=== PATIENT | male | born 1980 | race Caucasian/White ===

== ENCOUNTER 2020-09-09 10:02 | Emergency (ER) | payer OTHER ==
[2020-09-09 10:14] VITALS: BP 165/94
--- NOTE | 2020-09-09 12:02 | ER Document Report ---
ED Medical Screen (RME) - General Chief Complaint: Insect Bite Stated Complaint: POSSIBLE SPIDER BITE ON LEFT LEG Time Seen by Provider: 09/09/20 11:44 - HPI Notes: 09/09/20 11:59 40-year-old male presents to the emergency room today for evaluation of left lower extremity has multiple areas of discoloration from what he suspects was a possible spider bite, states that yesterday it was red and today its purple/ black in color, states it slightly itchy. Patient was seen in urgent care and advised to go to the emergency room for further evaluation today. denies being on any blood thinners. States becoming worse with time. Has not tried any tccs-svh-xysnela medications. 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 Denies any chest pain, shortness of breath, nausea, vomiting, diarrhea. Denies any numbness or tingling bilateral lower extremities I have greeted and performed a rapid initial assessment of this patient. A comprehensive ED assessment and evaluation of the patient, analysis of test results and completion of the medical decision making process will be conducted by additional ED providers. PHYSICAL EXAMINATION: GENERAL: Well-appearing, well-nourished and in no acute distress. SKIN: Left lower extremity with approximately 1 cm X1 centimeter annular patch of purpura, indurated, warmth to touch with black discoloration on anterior aspect of martinez, noted smaller scattered petechial rash that is indurated. Still pulses +2 bilaterally equally - Related Data Allergies/Adverse Reactions: NSAIDS (Non-Steroidal Anti-Inflamma Allergy (Verified 09/09/20 11:42) Home Medications: CBD oil Past Medical History - Social History Frequency of alcohol use: None Drug Abuse: None Physical Exam - Vital signs Vitals: Temp Pulse Resp BP Pulse Ox 98.7 F 87 18 165/94 H 97 09/09/20 10:12 09/09/20 10:12 09/09/20 10:12 09/09/20 10:12 09/09/20 10:12 Course - Vital Signs Vital signs: Temp Pulse Resp BP Pulse Ox 98.7 F 87 18 165/94 H 97 09/09/20 10:12 09/09/20 10:12 09/09/20 10:12 09/09/20 10:12 09/09/20 10:12
[2020-09-09 12:18] LABS: ABSOLUTE BASOPHILS # (AUTO) 0.1 10^3/uL (0.0-0.2); ABSOLUTE EOSINOPHILS # (AUTO) 0.4 10^3/uL (0.0-0.6); ABSOLUTE LYMPHOCYTES (AUTO) 3.7 10^3/uL (0.5-4.7); ABSOLUTE MONOCYTES (AUTO) 0.9 10^3/uL (0.1-1.4); ABSOLUTE NEUT (AUTO) 6.5 10^3/uL (1.7-8.2); BASOPHILS % (AUTO) 0.7 % (0-2); EOSINOPHILS % (AUTO) 3.8 % (0-6); HEMATOCRIT 47.8 % (37.9-51.0); HEMOGLOBIN 16.8 g/dL (13.5-17.0); LYMPHOCYTES % (AUTO) 31.5 % (13-45); MEAN CORPUSCULAR HEMOGLOBIN 31.4 pg (27.0-33.4); MEAN CORPUSCULAR VOLUME 90 fl (80-97); MONOCYTES % (AUTO) 7.9 % (3-13); PLATELET COUNT 265 10^3/uL (150-450); RED BLOOD COUNT 5.34 10^6/uL (4.35-5.55); RED CELL DISTRIBUTION WIDTH 13.4 % (11.5-14.0); SEGMENTED NEUTROPHILS % (AUTO) 56.1 % (42-78); TOTAL CELLS COUNTED % (AUTO) 100 %; WHITE BLOOD COUNT 11.7 10^3/uL (4.0-10.5)
[2020-09-09 12:39] LABS: ANION GAP 9 (5-19); BLOOD UREA NITROGEN 15 mg/dL (7-20); CALCIUM 9.9 mg/dL (8.4-10.2); CARBON DIOXIDE 29 mmol/L (22-30); CHLORIDE 101 mmol/L (98-107); GLUCOSE 186 mg/dL (75-110); POTASSIUM 4.7 mmol/L (3.6-5.0)
--- NOTE | 2020-09-09 12:45 | RADIOLOGY REPORT (SQ) ---
EXAM DESCRIPTION: TIBIA FIBULA LEFT IMAGES COMPLETED DATE/TIME: 09/09/2020 12:24 pm REASON FOR STUDY: purple/black discoloration on LLE COMPARISON: None. NUMBER OF VIEWS: Two views. TECHNIQUE: Two radiographic images acquired of the left tibia and fibula to include the knee and ank le in at least one projection. LIMITATIONS: None. FINDINGS: MINERALIZATION: Normal. BONES: No acute fracture or dislocation. No worrisome bone lesions. SOFT TISSUES: No obvious swelling or foreign body. OTHER: No other significant finding. IMPRESSION: NEGATIVE STUDY OF THE LEFT TIBIA AND FIBULA. NO RADIOGRAPHIC EVIDENCE OF ACUTE INJURY. TECHNICAL DOCUMENTATION: JOB ID: [id number] 2010 [employer]- All Rights Reserved Reading location - IP/workstation name: [email or web address]
[2020-09-09] MEDS ORDERED: LIDOCAINE 1% INJ-PF (10 MG/ML) 30 ML SDV INJ ONE (17:10)
--- NOTE | 2020-09-09 17:47 | ER Document Report ---
ED Skin Rash/Insect Bite/Abscs - General Chief Complaint: Insect Bite Stated Complaint: POSSIBLE SPIDER BITE ON LEFT LEG Time Seen by Provider: 09/09/20 11:44 [facility] Provider: [facility] [[facility]] - Follow up as needed Mode of Arrival: Ambulatory Information source: Patient Notes: Patient is a 40-year-old male came to emergency room early this morning with complaint of having lesions on his left lower extremity. 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 Since that point in time patient has had multiple areas on his left lower extremity pop up to including one indurated place on the left lateral calf. Patient is here for evaluation. TRAVEL OUTSIDE OF THE [place] IN LAST 30 DAYS: No - HPI Patient complains to provider of: Skin rash/lesion, Tender/swollen area, Spider bite, Possible insect bite Onset: Yesterday Onset/Duration: Sudden, Persistent Quality of pain: Achy, Burning, Other - Itchy Severity: Moderate Pain Level: 3 Skin Character: Abscess, Erythema, Lesion, Patchy, Rash, Vesicular Skin Temperature: Warm Quality of rash: Itchy, Painful Identify cause: No Exacerbated by: Denies Relieved by: Denies Similar symptoms previously: No Recently seen / treated by doctor: No - Related Data Allergies/Adverse Reactions: NSAIDS (Non-Steroidal Anti-Inflamma Allergy (Verified 09/09/20 11:42) Home Medications: CBD oil Past Medical History - General Information source: Patient - Social History Smoking Status: Current Every Day Smoker Cigarette use (# per day): Yes - Half pack a day Smoking Education Provided: Yes Frequency of alcohol use: None Drug Abuse: None Lives with: Family Family History: Reviewed & Not Pertinent Review of Systems - Review of Systems Constitutional: No symptoms reported EENT: No symptoms reported Cardiovascular: No symptoms reported Respiratory: No symptoms reported Gastrointestinal: No symptoms reported Genitourinary: No symptoms reported Male Genitourinary: No symptoms reported Musculoskeletal: No symptoms reported Skin: See HPI, Change in color, Rash Hematologic/Lymphatic: No symptoms reported Neurological/Psychological: No symptoms reported -: Yes All other systems reviewed and negative Physical Exam - Vital signs Vitals: Temp Pulse Resp BP Pulse Ox 98.7 F 87 18 165/94 H 97 09/09/20 10:12 09/09/20 10:12 09/09/20 10:12 09/09/20 10:12 09/09/20 10:12 Interpretation: Hypertensive - Notes Notes: PHYSICAL EXAMINATION: GENERAL: Well-appearing, well-nourished and in no acute distress. HEAD: Atraumatic, normocephalic. EYES: Pupils equal round and reactive to light, extraocular movements intact, sclera anicteric, conjunctiva are normal. LUNGS: Breath sounds clear to auscultation bilaterally and equal. No wheezes rales or rhonchi. HEART: Regular rate and rhythm without murmurs Musculoskeletal: Normal range of motion, no pitting or edema. No cyanosis. NEUROLOGICAL: . Normal speech, normal gait. Normal sensory, motor exams PSYCH: Normal mood, normal affect. SKIN: Examination patient very concerned as his left lower leg. Patient has an area on the left lateral side of the leg that appears somewhat indurated moderate tenderness to palpation approximately 4 cm x 3-1/2 cm. 1 slight area approximately 2 x 2 cm appears fluctuant. Moderate tenderness to palpation in that area. Further evaluation shows at least 8 other areas on the leg that have a similar presentation but no induration more vascular presentation almost like a hemolytic type of a presentation with blood underneath the skin. Mild erythema noted around all. Course - Re-evaluation Re-evalutation: 09/10/20 03:28 Patient was here very extended period time today. Primary reason for this was no rooms available for evaluation as well as waiting on lab work. I did perform an I&D as stated and got very minimal return. At this point having a slight elevation in white count and patient also having a blood glucose of 186 and no history of diabetes but does state that he ate and drank a soda and other high sugar content in foods prior to having the blood drawn. I went ahead and place patient on an antibiotic for coverage. Stated the I&D at minimal return mostly bloody. I have informed patient [facility] return to ER if they progress any further. There was no sign of necrosis as I do not believe this to be a brown recluse bite. But I did treat him with doxycycline. - Vital Signs Vital signs: Temp Pulse Resp BP Pulse Ox 98.7 F 87 18 165/94 H 97 09/09/20 10:12 09/09/20 10:12 09/09/20 10:12 09/09/20 10:12 09/09/20 10:12 - Laboratory Result Diagrams: 09/09/20 12:09 09/09/20 12:09 Laboratory results interpreted by me: 09/09/20 09/09/20 12:09 12:09 WBC 11.7 H Glucose 186 H Procedures - Incision and Drainage Left Lateral Leg Type: Simple Anesthetic type: 1% Lidocaine mL's of anesthetic: 1 Blade size: 11 I&D procedure: Betadine prep applied Incision Method: Incision made by scalpel Amount/type of drainage: 1 mL Notes: 09/09/20 17:44 Most the patient's I&D was only of a slight amount of blood with a slight amount of mixed white purulent drainage. Mostly appear to be more hemolytic type of a abscess. Little was drained but will treat for antibiotics for infection. Discharge - Discharge Clinical Impression: Insect bite Qualifiers: Encounter type: initial encounter Site of insect bite: lower leg Laterality: left Qualified Code(s): S80.862A - Insect bite (nonvenomous), left lower leg, initial encounter Condition: Stable Disposition: HOME, SELF-CARE Instructions: Swollen Insect Bite or Sting ([facility]) Additional Instructions: Home and rest. Medication as prescribed take until completion. Monitor the spread if it gets worse return to ER for reevaluation. If you spike a fever or have any other symptoms return to ER for reevaluation. Prescriptions: Doxycycline Hyclate 100 mg PO BID #20 tablet.dr Forms: Smoking Cessation Education, Elevated Blood Pressure Referrals: [facility] [Primary Care Provider] - Follow up as needed
== END 2020-09-09 17:54 | disposition home or self-care (01) ==
LOC: ER 10:02
PROC: 0H9LXZZ Drainage of Left Lower Leg Skin, External Approach (ICD-10-PCS; principal; 2020-09-09)
DX: L02.416 Cutaneous abscess of left lower limb (principal); S80.862A Insect bite (nonvenomous), left lower leg, initial encounter; W57.XXXA Bitten or stung by nonvenomous insect and other nonvenomous arthropods, initial encounter; F17.210 Nicotine dependence, cigarettes, uncomplicated
CPT/HCPCS: 36415; 80048; 85025; 87070; 87075; 87205; 99283